=== PATIENT | female | born 1950 | race Caucasian/White ===

== ENCOUNTER → 2020-09-09 11:05 | Outpatient (CLI) | payer MEDICARE, OTHER, SELFPAY ==
[2020-09-09] MEDS: COVID-19 VACC, Ad26(JANSSEN)/PF 0.5 ML IM (11:19)
== END ==
PROVIDERS: PCP Nurse Practitioner Gerontology; Visit Provider Internal Medicine
DX: Z23 Encounter for immunization (principal)
CPT/HCPCS: 0031A; 91303

== ENCOUNTER → 2025-05-24 10:34 | Outpatient (CLI) | payer MEDICARE, OTHER, SELFPAY ==
[2025-05-24 11:21] LABS: Add Manual Diff / Slide Review NO; Hematocrit 39.6 % (36-46); Hemoglobin 13.1 g/dL (12.0-16.0); Lymphocytes Absolute Auto 2200 /uL (1100-4500); Mean Corpuscular HGB Conc 33.0 % (30-36); Mean Corpuscular Hemoglobin 27.8 PG (26-34); Mean Corpuscular Volume 84.1 fL (80-100); Platelet Count 380 X10^3/uL (150-400)
[2025-05-24 12:27] LABS: Alanine Aminotransferase 12 IU/L (<35); Albumin 4.0 g/dL (3.5-5.0); Albumin Globulin Ratio 1.4 (1.0-2.8); Alkaline Phosphatase 83 U/L (38-126); Blood Urea Nitrogen 23 mg/dL (7-17); Calcium 9.8 mg/dL (8.4-10.2); Carbon Dioxide 28 mmol/L (22-32); Chloride 104 mmol/L (98-107); Cholesterol 243 mg/dL (140-199); Estimated Glomerular Filt Rate > 60 mL/min (>60); Globulin 2.9 g/dL (1.7-4.1); Glucose 114 mg/dL (70-99); HDL Cholesterol 63 mg/dL (40-60); HEMOLYSIS < 15 (0-50); Potassium 4.5 mmol/L (3.4-5.1); Sodium 139 mmol/L (137-145); Total Protein 6.9 g/dL (6.3-8.2); Triglycerides 271 mg/dL (35-150)
[2025-05-25 16:17] LABS: Hep C Virus Ab w/Reflex Quant NEGATIVE s/c (NEGATIVE)
== END ==
PROVIDERS: PCP Family Medicine; Referring Provider Family Medicine; Visit Provider Family Medicine
DX: Z13.9 Encounter for screening, unspecified (principal); F11.11 Opioid abuse, in remission
CPT/HCPCS: 36415; 80053; 80061; 85025; 86803

== ENCOUNTER → 2025-05-31 14:27 | Outpatient (CLI) | payer MEDICARE, OTHER, SELFPAY ==
--- NOTE | 2025-05-31 14:29 | DI.US.S_ITS ---
PROCEDURE: US PELVIC COMPLETE INDICATIONS: LLQ mass/ tenderness TECHNIQUE: Real-time scanning was performed of the pelvic organs, with image documentation. Endovaginal study not performed at request of patient. COMPARISON: None. FINDINGS: Uterus: Uterus is retroverted and normal in size at 4.6 x 3.9 x 2.2 cm. The myometrium is heterogenous. Endometrial complex not well seen. Ovaries: Nonvisualized Other: No pathologic free abdominal or pelvic fluid. IMPRESSION: Nonvisualized ovaries and endometrium. Patient declined endovaginal evaluation Approved by: Rogelio Call M.D. on 06/01/2025 at 17:03
== END ==
LOC: US 14:28
PROVIDERS: PCP Family Medicine; Referring Provider Family Medicine; Visit Provider Family Medicine
DX: R19.04 Left lower quadrant abdominal swelling, mass and lump (principal); R52 Pain, unspecified
CPT/HCPCS: 76856